=== PATIENT | male | born 1995 ===

== ENCOUNTER 2024-07-20 10:12 | Outpatient (AMB) | payer OTHER, SELFPAY ==
--- NOTE | 2024-07-20 10:54 | MHC.OFFWIV ---
Intake Vital Signs 07/20/24 10:55 Height 5 ft 3 in Weight 151 lb BMI 26.7 BP 120/78 Blood Pressure Location Lt brachial Position Sitting Pulse 68 Pulse Source Pulse Oximeter Pulse Oximetry (%) 98 Oxygen Delivery Method Room Air Intake Visit Reasons: MAITRE D' Groin pain Intake Note: Patient here for groin pain that has been present for about 1 month, states she does heavy weight lifting. Patient Tobacco Use Status: Never used Tobacco Allergies No Known Allergies Allergy (Verified 07/20/24 10:56) Do you need a note to return to daycare/school/sports/work: No HPI HPI Comments History of Present Illness Details 28 y/o Male patient who presents to the walk in clinic with c/o Dysuria and urgency that has been present for about 1 month. He did have protected sexual intercourse with multiple women. Does reports prior h/o Gonorrhea at age 18 yrs. Denies fevers, chills, nausea or vomiting. He is new to [facility] [place] - has not had Care for years. He has a new patient appointment with PCP. [facility] Medical History (Updated 07/20/24 @ 11:48 by Kristy Arambula NP) Urinary urgency Social History Patient Tobacco Use Status: Never used Tobacco Review of Systems Const All systems reviewed & are unremarkable except as noted in HPI and below Physical Exam Vital Signs: Last Vital Signs Pulse 68 07/20/24 10:55 BP 120/78 07/20/24 10:55 Pulse Ox 98 07/20/24 10:55 Oxygen Delivery Method Room Air 07/20/24 10:55 BMI result Body Mass Index 26.7 Const General: no acute distress Nutritional Appearance: well nourished Orientation/consciousness: patient oriented x3 Other: Genital exam deferred. General: Yes no CVA tenderness Back/Spine/Pelvis Back: no CVA tenderness Neuro General: patient oriented x3 Results AMB Urinalysis, Automated UA Leukoctes 0 Alissa/uL Last Edit by HERACLIO Simmons on 07/20/24 12:02 UA Nitrite Negative Last Edit by HERACLIO Simmons on 07/20/24 12:02 UA Urobilinogen 0.2 mg/dL Last Edit by HERACLIO Simmons on 07/20/24 12:02 UA Protein 0 mg/dL Last Edit by HERACLIO Smimons on 07/20/24 12:02 UA pH 6.0 Last Edit by HERACLIO Simmons on 07/20/24 12:02 UA Blood 0 Eloy/uL Last Edit by HERACLIO Simmons on 07/20/24 12:02 UA Specific M[place] 1.015 Last Edit by HERACLIO Simmons on 07/20/24 12:02 UA Ketone Negative Last Edit by HERACLIO Simmons on 07/20/24 12:02 UA Bilirubin 0 mg/dL Last Edit by Clint Matute CCMA on 07/20/24 12:02 UA Glucose 0 mg/dL Last Edit by HERACLIO Simmons on 07/20/24 12:02 Results Reviewed Results Reviewed: Laboratory Last Values Urine pH (Auto) 6.0 07/20/24 12:00 Specific M[place] (Auto) 1.015 07/20/24 12:00 Urine Protein (Auto) 0 mg/dL 07/20/24 12:00 Glucose (UA)(Auto) 0 mg/dL 07/20/24 12:00 Urine Ketones (Auto) Negative 07/20/24 12:00 Urine Blood (Auto) 0 Eloy/uL 07/20/24 12:00 Urine Nitrite (Auto) Negative 07/20/24 12:00 Urine Bilirubin (Auto) 0 mg/dL 07/20/24 12:00 Urine Urobilinogen (Auto) 0.2 mg/dL 07/20/24 12:00 Leukocyte Esterase (Auto) 0 Alissa/uL 07/20/24 12:00 Assessment & Plan Assessment & Plan (1) Urinary urgency: Code(s): R39.15 - Urgency of urination Plan: Ordered Urine Urinalysis - Ordered NG/GC Orders: Orders CT NG by PCR Today R39.15 - Urgency of urination AMB Urinalysis Automated Today Z13.9 - Encounter for screening, unspecified UA CC w/rflx Micro + Cult Today R39.15 - Urgency of urination Coding Level of Care Code New Pt Level 4 (70831) Diagnoses Urinary urgency R39.15 Time Spent (min) 20
[2024-07-20 10:55] VITALS: BP 120/78; PULSE 68; O2SAT 98; BMI 26.7
== END 2024-07-20 12:19 | disposition home or self-care (01) ==
PROVIDERS: Visit Provider Nurse Practitioner Family
DX: Z13.9 Encounter for screening, unspecified (principal); R39.15 Urgency of urination

== ENCOUNTER 2024-07-20 10:12 | Outpatient (REF) | payer OTHER, SELFPAY ==
--- OUTSIDE RECORDS SUMMARY | 2024-07-20 13:10 | XMS_ITS | Clinical Summary ---
Author Organization [facility] Address [address] [place] [phone] Phone Care Team Providers Care Stove Fitter Name Role Phone Kvng Schaefer MD Primary Care Provider Unavailabl e Immunizations Immunization Administration Dates Next Due DTP 05/10/1997,06/10/1996,04/08/1996 DTaP 5 11/20/1999,02/18/1996 H1N1 01/07/2009 Hep A, ped/adol 02/19/2013,09/08/2010 Hep B, ped/adol 06/10/1996,02/18/1996,1995 Hib (HbOC) 02/18/1996 Hib (PRP-T) 03/04/1997,06/10/1996,04/08/1996 IPV 11/20/1999,02/18/1996 MMR 11/20/1999,03/04/1997 Meningococcal Conj (Menactra) MCV4P 08/12/2009 OPV 06/10/1996,04/08/1996 Td (adult) (Tenivac), 5 Lf t etanus toxoid, PF, adsorbed 04/30/2014 Tdap 03/25/2008 Varicella 03/25/2008,08/05/1997 Family History Relation Name Status Comments Brother Brother: Reynau ds, Hypertension Father Alive Father: Hyperte nsion Mother Mother: Hyperli pidemia, Thyroid disease Other Family history of Sudden /IA under 55, Family history of ADD/ADHD, Family history of *Dental caries, Family history of *CVA/Stroke, No family history of *Heart Disease, Family history of *Sudden /IA under 55, Family history of Diabetes mellitus, Family history of Asthma Paternal Grandfather Paterna l uncle: Diabetes mellitus Social History Tobacco Use Types Packs/Day Years Used Date Smoking Tobacco: Never Comments:Never smoker Sex and Gender Information Value Date Recorded Sex Assigned at Not on file Legal Sex Male 4:57 PM EDT Gender Identity Not on file Sexual Orientation Not on file Last Filed Vital Signs Vital Sign Reading Time Taken Comments Blood Pressure 112/67 06/09/2015 12:00 AM EDT Pulse 75 06/09/2015 12:00 AM EDT Temperature 36.9 ??C (98.4 ??F) 06/09/2015 1 2:00 AM EDT Respiratory Rate - - Oxygen Saturation - - Inhaled Oxygen Concentration - - Weight 52.1 kg (114 lb 12.8 oz) 016 12:00 AM EDT Height 160.7 cm (5' 3.25 ) 03/24/2015 1 2:00 AM EST Body Mass Index 20.17 03/24/2015 12:00 AM EST Plan of Treatment Health Maintenance Due Date Last Done Comments Influenza Vaccines (#1) 2023 COVID-19 Vaccine ( season) 2023 DTaP,Tdap,and Td Vaccines (8 - Td or Tdap) 04/30/2024 04/30/2014, 03/25/2008, 11/20/1999, Additional history exists Hepatitis B Vaccines Completed 06/10/1996, 02/18/1996, 1995 HIB Vaccines Completed 03/04/1997, 05/20, 04/08/1996, Additional history exists IPV Vaccines Completed 11/20/1999, 05/20, 04/08/1996, Additional history exists MMR Vaccines Completed 11/20/1999, 03/04/1997 Varicella Vaccines Completed 03/25/2008, 08/05/1997 Meningococcal Vaccine Aged Out 08/12/2009 No silvia julia eligible based on patient's age to complete this topic Hepatitis A Vaccines Completed 02/19/2013, 09/09/19 11 HPV Vaccines Aged Out No longer eligi ble based on patient's age to complete this topic Men B Vaccine Aged Out No longer elig ible based on patient's age to complete this topic Pneumococcal Vaccine Aged Out No long er eligible based on patient's age to complete this topic Care Teams Stove Fitter Relationship Specialty Start Date End Date Kvng Schaefer MD PCP - General 09/28/16
[2024-07-20 16:10] LABS: Appearance Urine Clear; Color Urine Yellow; Glucose Urine UA Negative (Negative); Leukocyte Esterase Urine Negative (Negative); Nitrite Urine Negative (Negative); Specific Gravity - Urine 1.025 (1.005-1.025); Urine Blood Negative (Negative); Urine Ketones Trace mg/dL (Negative); Urine Protein Negative (Neg-Trace)
[2024-07-21 11:07] LABS: CT PCR NOT DETECTED (Not Detect.); NG PCR NOT DETECTED (Not Detect.)
== END 2024-07-20 10:13 | disposition home or self-care (01) ==
LOC: HO.LAB 10:12
PROVIDERS: Visit Provider Nurse Practitioner Family
DX: R39.15 Urgency of urination (principal); R30.0 Dysuria
CPT/HCPCS: 81003; 87491; 87591; 99202